=== PATIENT | female | born 1980 | race Caucasian/White ===

== ENCOUNTER 2016-09-08 09:42 | Emergency (ER) | payer SELFPAY ==
[~2016-09-08 09:42] MED LIST: Ketorolac Tromethamine 60 MG/2 ML VIAL ONE; Lidocaine 1% 20 ML MDV ONE; cefTRIAXone\\ROCEPHIN 1 GM VIAL ONE
[2016-09-08 10:37] LABS: Bilirubin Negative (Negative); Blood, Urine Negative (Negative); Clarity Slightly Cloudy (Clear); Glucose, Urine (Dipstick) Negative (Negative); Leukocyte Small (Negative); Nitrite Negative (Negative); Protein, Urine (Dipstick) Negative (Neg-Trace); Urobilinogen 0.2 mg/dL (0.2-1.0)
[2016-09-08 10:43] LABS: Bacteria/HPF 3+ HPF (None Seen); RBC/HPF 0-3 HPF (0-3); WBC/HPF 21-50 HPF (0-3)
[2016-09-08 10:44] LABS: Pregnancy Test - Urine (BHCG) NEGATIVE (NEGATIVE); Pregu Control Background? CLEAR/WHITE (CLR/WHITE); Pregu Control Bar Appear? YES (CONTROL BAR)
[2016-09-08 11:02] LABS: #Basophils 0.1 thou/uL (0.0-0.2); #Eosinphils 0.1 thou/uL (0.0-0.7); #Monocytes 0.6 thou/uL (0.11-0.59); #Neutrophils 4.2 thou/uL (1.40-6.50); %Basophils 0.8 % (0.0-1.0); %Eosinophils 1.4 % (0.0-10.0); %Lymphocytes 37.2 % (21.0-51.0); %Monocytes 7.8 % (0.0-10.0); %Neutrophils 52.9 % (42.0-75.0); Hemoglobin 13.9 g/dL (12.0-16.0); Mean Corpuscular HGB CONC 32.5 g/dL (32.0-36.0); Mean Corpuscular Hemoglobin 30.3 pg (27.0-31.0); Mean Corpuscular Volume 93.2 fl (81.0-99.0); Mean Platelet Volume 8.3 fL (7.4-10.4); Platelet Count 318 thou/uL (130-400); RBC Distribution Width 14.3 % (11.5-14.5); Red Blood Cell (RBC) Count 4.57 mill/uL (4.20-5.40); White Blood Cell (WBC) Count 7.9 thou/uL (4.8-10.8)
[2016-09-08 11:18] LABS: ALT (SGPT) 18 U/L (0-55); AST (SGOT) 14 U/L (5-34); Albumin 4.5 g/dL (3.5-5.0); Alkaline Phosphatase 92 U/L (40-150); Anion Gap 16 mmol/L (10-20); BUN (Urea Nitrogen) 6 mg/dL (7.0-18.7); Bilirubin, Total 0.5 mg/dL (0.2-1.2); Calc. Creatinine Clearance 0 mL/min (70-130); Calcium 9.6 mg/dL (7.8-10.44); Carbon Dioxide 26 mmol/L (22-29); Chloride 104 mmol/L (98-107); Estimated GFR-MDRD Greater than 90; Globulin 2.6 g/dL (2.4-3.5); Glucose 97 mg/dL (70-105); Potassium 4.2 mmol/L (3.5-5.1); Protein, Total 7.1 g/dL (6.0-8.3); Sodium 142 mmol/L (136-145)
[2016-09-08] MEDS ORDERED: Azithromycin 250 MG TAB ONE (11:19)
--- NOTE | 2016-09-08 11:20 | ERRECORD ---
[facility] EMERGENCY RECORD HPI ABDOMINAL PAIN (10:25 SHAN) CHIEF COMPLAINTS: Patient presents for evaluation of suprapubic pain and discharge. HISTORIAN: History provided by patient. QUALITY: Pain is dull in nature. TIME COURSE: Gradual onset of symptoms. RELIEVED BY: Patient's condition relieved by nothing. EXACERBATED BY: Patient's condition exacerbated by nothing. ROS CONSTITUTIONAL: Negative constitutional review of systems, Historian denies chills, denies fever. (10:25 SHAN) EYES: Negative eye review of systems. (10:25 SHAN) ENT: Negative ears, nose, throat review of systems. (10:25 SHAN) CARDIOVASCULAR: Negative cardiovascular review of systems, Historian denies chest pain, denies palpitations. (10:25 SHAN) RESPIRATORY: Negative respiratory review of systems, Historian denies cough, denies shortness of breath. (10:25 SHAN) GI: Negative gastrointestinal review of systems, Historian denies abdominal pain, denies constipation, denies diarrhea. (10:25 SHAN) GENITOURINARY FEMALE: c/o suprapubic pain and vaginal discharge. (10:26 SHAN) MUSCULOSKELETAL: Negative musculoskeletal review of systems. (10:25 SHAN) SKIN: Negative skin review of systems. (10:25 SHAN) NEUROLOGIC: Negative neurologic review of systems. (10:25 SHAN) ENDOCRINE: Negative endocrine review of systems. (10:25 SHAN) HEMO/LYMPHATIC: Normal hematologic/lymphatic system review. (10:25 SHAN) PSYCHIATRIC: Negative psychiatric review of systems. (10:25 SHAN) NOTES: All other ROS is negative except as listed in HPI. (10:25 SHAN) PAST MEDICAL HISTORY MEDICAL HISTORY: No past medical history, Flu vaccine not up to date, Tetanus not up to date, Pneumococcal vaccine not up to date. (10:19 SFRE) FEMALE SURGICAL HISTORY: THYROID CYST REMOVED- BENIGN, TUBAL LIGATION. (10:19 SFRE) PSYCHIATRIC HISTORY: Psychiatric history includes, anxiety. (10:19 SFRE) SOCIAL HISTORY: Patient drinks socially, once a month, Patient denies drug use, Patient currently uses tobacco, smokes cigarettes, daily, Patient smokes 1 pack per day. (10:19 SFRE) NOTES: I have reviewed and agree with the PMH/PSxH/FamHx/SocHx obtained by the nurse. (10:25 SHAN) KNOWN ALLERGIES NKDA &a-1R&a+25V*p+0X*e4327Y*c202B*c15G*c2P*p-0X&a-25V&a+1R Name: Niyah Oconnor : 1980 F36 MedRec: [id number] AcctNum: [id number] Prepared: ThuSep 10, 2016 07:08 by Interface Page 1 of 3 pMD [facility] EMERGENCY RECORD CURRENT MEDICATIONS (10:18 SFRE) None VITAL SIGNS (10:16 SFRE) VITAL SIGNS: BP: 106/67, Pulse: 81, Resp: 18, Temp: 98.0 (Tympanic), O2 sat: 100 on Room Air, Time: 09/08/2016 10:16. PHYSICAL EXAM CONSTITUTIONAL: Vital signs reviewed, Patient appears non toxic, Patient alert and oriented to person, place and time, Pt is in no apparent distress. (10:25 SHAN) HEAD: Head exam included findings of head atraumatic, normocephalic. (10:25 SHAN) EYES: Eye exam included findings of eyelids normal to inspection, Pupils equally round and reactive to light, Extraocular muscles intact. (10:25 SHAN) ENT: ENT exam normal, Nose exam normal, no nasal deformity, no bleeding from nares, Pharynx exam normal, Mouth exam normal, mucous membranes moist. (10:25 SHAN) NECK: Neck exam included findings of normal range of motion, Trachea midline. (10:25 SHAN) RESPIRATORY CHEST: Respiratory and chest exam normal, Breath sounds clear, No wheezing, No rales, Chest exam included findings of chest movement symmetrical, Chest expansion equal. (10:25 SHAN) CARDIOVASCULAR: Cardiovascular assessment normal, Cardiovascular exam included findings of heart rate regular rate and rhythm, Heart sounds normal. (10:25 SHAN) ABDOMEN FEMALE: Abdominal exam included findings of abdomen nontender, Bowel sounds normal, no mass, no pulsatile masses, no peritoneal signs. (10:25 SHAN) GENITOURINARY FEMALE: pelvic pain, tenderness on cervical motion, mild yellow discharge. (10:44 SHAN) BACK: Back exam included findings of normal inspection, range of motion normal, no costovertebral angle tenderness. (10:25 SHAN) UPPER EXTREMITY: Upper extremity exam included findings of inspection normal, Range of motion normal. (10:25 SHAN) LOWER EXTREMITY: Lower extremity exam included findings of inspection normal, Range of motion normal. (10:25 SHAN) NEURO: Neuro exam findings include patient oriented to person, place and time, Speech normal, no focal motor deficits, no focal sensory deficits. (10:25 SHAN) SKIN: Skin exam included findings of skin warm, dry, and normal in color. (10:25 SHAN) LYMPHATIC: Lymphatic exam normal. (10:25 SHAN) PSYCHIATRIC: Psychiatric exam included findings of patient oriented to person place and time, Normal affect. (10:25 SHAN) MEDICATION ADMINISTRATION SUMMARY Drug Name: Zithromax oral, Dose Ordered: 4 tab(s), Route: Oral, &a-1R&a+25V*p+0X*[id number]*c202B*c15G*c2P*p-0X&a-25V&a+1R Name: Niyah Oconnor : 1980 F36 MedRec: [id number] AcctNum: [id number] Prepared: ThuSep 10, 2016 07:08 by Interface Page 2 of 3 pMD [facility] EMERGENCY RECORD Status: Given, Time: 11:24 09/08/2016, Drug Name: Toradol intramuscular, Dose Ordered: 60 mg, Route: Intramuscular, Status: Given, Time: 10:54 09/08/2016, Drug Name: Rocephin IM Convenience, Dose Ordered: 1 g, Route: Intramuscular, Status: Given, Time: 10:54 09/08/2016, Detailed record available in Medication Service section. DOCTOR NOTES (11:06 SHAN) TEXT: Has had recurrent vaginitis dx per patient. Did have tender uterus/cervix on exam. Tests sent off. Will rx to cover each choice. Followup recommended. DATA REVIEWED: Lab data reviewed. PROBLEM LIST No recorded problems DIAGNOSIS (11:11 SHAN) FINAL: PRIMARY: INFLAMMATORY DISEASE CERVIX UTERI, ADDITIONAL: vaginosis. PRESCRIPTION Flagyl: TABLET : 500 mg : ORAL : Quantity: 1 Unit: tab(s) Route: ORAL Schedule: 2 times a day (with meals) Dispense: 14 Unit: tab(s) May substitute. Refills: No Refills . (11:08 SHAN) NOTES: No Refills. (11: JOHNY) Vibramycin capsule: CAPSULE : 100 mg : ORAL : Quantity: 1 Unit: cap(s) Route: ORAL Schedule: 2 times a day (with meals) Dispense: 14 Unit: cap(s) May substitute. Refills: No Refills . (: JOHNY) NOTES: No Refills. (: JOHNY) DISPOSITION PATIENT: Disposition Type: Discharge, Disposition: *Discharge Home. (11: JOHNY) Patient left the department. (11:36 GERALD) Moore: GERALD=ATUL Dela Cruz, Anne Marie YAN=ATUL Ch, Kari MCCLAIN=MD Hector, Kelvin &a-1R&a+25V*p+0X*e1873Q*c202B*c15G*c2P*p-0X&a-25V&a+1R Name: Niyah Oconnor : 1980 F36 MedRec: [id number] AcctNum: [id number] Prepared: ThuSep 10, 2016 07:08 by Interface Page 3 of 3 pMD MTDD
--- NOTE | 2016-09-08 11:24 | PICIS ---
[facility] EMERGENCY RECORD TRIAGE (ThuSep 08, 2016 10:18 SFRE) TRIAGE NOTES: SUPRAPUBIC CRAMPING WITH DISCHARGE. (ThuSep 08, 2016 10:18 SFRE) PATIENT: NAME: Niyah Oconnor, AGE: 36, GENDER: female, : Thu1980, TIME OF GREET: ThuSep 08, 2016 09:43, PREFERRED LANGUAGE: Urdu, ETHNICITY: Not or , ECODE BILLING MAP: [facility], SSN: [id number], Zip Code: [address], KG WEIGHT: 74.84, PHONE: , , , PERSON ID: [id number], PCP: NO PCP. (ThuSep 08, 2016 10:18 SFRE) COMPLAINT: ABDOMINAL PAIN,DISCHARGE. (ThuSep 08, 2016 10:18 SFRE) ADMISSION: URGENCY: 3 Urgent, ADMISSION SOURCE: Home, TRANSPORT: Walk-in, BED: ED -04. (ThuSep 08, 2016 10:18 SFRE) ASSESSMENT: Symptoms began 09/05/2016. (10:19 SFRE) PAIN: Patient complains of pain described as, cramping, on a scale 0-10 patient rates pain as 8, Location SUPRAPUBIC, Pain is constant, No aggravating factors, No relieving factors. (10:19 SFRE) IMMUNIZATIONS: Flu vaccine not up to date. (10:19 SFRE) SIRS SCORING: Heart Rate 55-109 (0), Temp range 96.8-101.1 (0), respiratory rate 12-24 (0), Mental Status altered: no (0). (10:19 SFRE) TRIAGE SCREENING: Patient denies suicidal ideation, Patient denies presence of domestic violence. (10:19 SFRE) PROVIDERS: TRIAGE NURSE: Kari hC RN. (ThuSep 08, 2016 10:18 SFRE) VITAL SIGNS: BP 106/67, Pulse 81, Resp 18, Temp 98.0, (Tympanic), O2 Sat 100, on Room Air, Time 09/08/2016 10:16. (10:16 SFRE) PREVIOUS VISIT ALLERGIES: NKDA. (ThuSep 08, 2016 10:18 SFRE) NKDA. (10:19 SFRE) KNOWN ALLERGIES NKDA CURRENT MEDICATIONS (10:18 SFRE) None VITAL SIGNS (10:16 SFRE) VITAL SIGNS: BP: 106/67, Pulse: 81, Resp: 18, Temp: 98.0 (Tympanic), O2 sat: 100 on Room Air, Time: 09/08/2016 10:16. NURSING ASSESSMENT: GENITOURINARY (10:18 SFRE) CONSTITUTIONAL: Patient arrives ambulatory, Gait steady, History obtained from patient, Patient appears, in distress due to pain, Patient cooperative, Patient alert, Oriented to person, place and time, Skin warm, Skin dry, Skin normal in color, Mucous membranes pink, Mucous membranes moist, Patient is well-groomed, Patient complains of ABD PAIN. PAIN FEMALE: Pain exacerbated by nothing, Nothing has been &a-1R&a+25V*p+0X*k9500O*c202B*c15G*c2P*p-0X&a-25V&a+1R Name: Niyah Oconnor : 1980 F36 MedRec: [id number] AcctNum: [id number] Prepared: ThuSep 10, 2016 07:14 by Interface Page 1 of 9 pMD [facility] EMERGENCY RECORD tried to alleviate the pain, cramping pain, to the suprapubic region, constant, on a scale 0-10 patient rates pain as 8. GENITOURINARY FEMALE: no associated urinary complaints, Associated with vaginal discharge, moderate amount, of thick, white discharge, with a foul odor, REPORTS THE CONSISTANCY CHANGES FROM THICK TO THIN, no associated vaginal bleeding, no associated complaints of painful intercourse, Notes: REPORTS HX OF BACTERIAL VAGINOSIS. ABDOMEN: Abdomen assessment findings include abdomen symmetrical, Abdomen soft, tender, suprapubic, Bowel sound normal, no associated nausea, no associated vomiting, no associated diarrhea, no associated constipation. SAFETY: Side rails up, Cart/Stretcher in lowest position, Family at bedside, Call light within reach, Hospital ID band on. NURSING PROCEDURE: DISCHARGE NOTE (11:16 SCHI) DISCHARGE: Patient discharged to home, ambulating without assistance, family driving, accompanied by other family member, Summary of Care printed/ provided, Patient requested and was provided an electronic copy of Discharge Instructions, Transition record given to patient, Discharge instructions given to patient, Simple or moderate discharge teaching performed, Prescriptions given and instructions on side effects given, Medication reconciliation form given, Above person(s) verbalized understanding of discharge instructions and follow-up care, Patient treated and evaluated by physician. BELONGINGS: Belongings and valuables with patient at time of discharge include:, Belongings remain with patient, Valuables remain with patient. SAFETY: Side rails up, Cart/Stretcher in lowest position, Family at bedside, Hospital ID band on. NURSING PROCEDURE: PELVIC EXAM (10:18 SFRE) PELVIC EXAM: Pelvic exam indicated for vaginal discharge, Pelvic exam performed by Dr. YOUNG, Pelvic exam assisted by JEZRN, Exam findings include, small amount, of yellow vaginal discharge, with odor, GC/Chlamydia cultures obtained, labeled in the presence of the patient and sent to lab, Specimen for wet prep collected, labeled in the presence of the patient and sent to lab, Notes: MANUAL EXAM ONLY NO SPECULUM USED. SAFETY: Side rails up, Cart/Stretcher in lowest position, Family at bedside, Call light within reach, Hospital ID band on. ORDER DETAILS Order Name: CBC with Differential, Status: Active, Time: 10:22 09/08/2016, User: JOHNY, - Ordered for: MD Young Stanley, &a-1R&a+25V*p+0X*n9420Y*c202B*c15G*c2P*p-0X&a-25V&a+1R Name: Niyah Oconnor : 1980 F36 MedRec: [id number] AcctNum: [id number] Prepared: ThuSep 10, 2016 07:14 by Interface Page 2 of 9 pMD [facility] EMERGENCY RECORD - Entered by: MD Yonug Stanley - Mon Sep 08, 2016 10:22, - Quantity: 1, Order Name: Comprehensive Metabolic Panel, Status: Active, Time: 10:25 09/08/2016, User: JOHNY, - Ordered for: MD Young Stanley, - Entered by: MD Young Stanley - Mon Sep 08, 2016 10:25, - Quantity: 1, Order Name: Culture, Urine, Status: Active, Time: 10:24 09/08/2016, User: JOHNY, - Ordered for: MD Young Stanley, - Entered by: MD Young Stanley - [facility] Sep 08, 2016 10:24, - Quantity: 1, Order Name: GC/Chlamydia Profile by PCR, Status: Active, Time: 10:24 09/08/2016, User: JOHNY, - Ordered for: MD Young Stanley, - Entered by: MD Young Stanley - Mon Sep 08, 2016 10:24, - Quantity: 1, Order Name: Test, Urine (CG), Status: Active, Time: 10:23 09/08/2016, User: YURIY, - Ordered for: MD Young Stanley, - Entered by: ATUL Ch, [facility] Sep 08, 2016 10:23, - Quantity: 1, Order Name: Urinalysis with Microscopic, Status: Active, Time: 10:22 09/08/2016, User: YURIY, - Ordered for: MD Young Stanley, - Entered by: ATUL Ch, [facility] Sep 08, 2016 10:22, - Quantity: 1, Order Name: Urinalysis with Microscopic, Status: Active, Time: 10:24 09/08/2016, User: JOHNY, - Ordered for: MD Young Stanley, - Entered by: MD Young Stanley [facility] Sep 08, 2016 10:24, - Quantity: 1, Order Name: Wet Prep, Status: Canceled, Time: 14:06 09/08/2016, User: System, - Ordered for: MD Young Stanley, - Entered by: ATUL Ch, [facility] Sep 08, 2016 10:39, - Quantity: 1. MEDICATION ADMINISTRATION SUMMARY Drug Name: Zithromax oral, Dose Ordered: 4 tab(s), Route: Oral, Status: Given, Time: 11:24 09/08/2016, Drug Name: Toradol intramuscular, Dose Ordered: 60 mg, Route: Intramuscular, Status: Given, Time: 10:54 09/08/2016, Drug Name: Rocephin IM Convenience, Dose Ordered: 1 g, Route: Intramuscular, Status: Given, Time: 10:54 09/08/2016, Detailed record available in Medication Service section. MEDICATION SERVICE Rocephin IM Convenience: Order: Rocephin IM Convenience &a-1R&a+25V*p+0X*o3234N*c202B*c15G*c2P*p-0X&a-25V&a+1R Name: Niyah Oconnor : 1980 F36 MedRec: [id number] AcctNum: [id number] Prepared: ThuSep 10, 2016 07:14 by Interface Page 3 of 9 pMD [facility] EMERGENCY RECORD (ceftriaxone sodium/lidocaine HCl) - Dose: 1 g : Intramuscular Schedule: Now Ordered by: Kelvin Young MD Entered by: Kelvin Young MD ThuSep 08, 2016 10:46 Documented as given by: Kari Ch RN ThuSep 08, 2016 10:54 Patient, Medication, Dose, Route and Time verified prior to administration. IM antibiotic, Amount given: 1G, Medication administered to right hip, Medication combined for administration with 1% LIDOCAINE, Patient appears Awake and alert- acceptable, Correct patient, time, route, dose and medication confirmed prior to administration, Patient advised of actions and side-effects prior to administration, Allergies confirmed and medications reviewed prior to administration, Patient in position of comfort, Side rails up, Cart in lowest position, Family at bedside. Toradol intramuscular: Order: Toradol intramuscular (ketorolac tromethamine) - Dose: 60 mg : Intramuscular Schedule: Now Ordered by: Kelvin Young MD Entered by: Kelvin Young MD ThuSep 08, 2016 10:45 Documented as given by: Kari Ch RN ThuSep 08, 2016 10:54 Patient, Medication, Dose, Route and Time verified prior to administration. IM medication, Amount given: 60MG, Medication administered to left hip, Patient appears Awake and alert- acceptable, Correct patient, time, route, dose and medication confirmed prior to administration, Patient advised of actions and side-effects prior to administration, Allergies confirmed and medications reviewed prior to administration, Patient in position of comfort, Side rails up, Cart in lowest position, Family at bedside. Zithromax oral: Order: Zithromax oral (azithromycin) - Dose: 4 tab(s) : Oral Schedule: Now Ordered by: Kelvin Young MD Entered by: Kelvin Young MD ThuSep 08, 2016 11:06 , Acknowledged by: Kari Ch RN ThuSep 08, 2016 11:17 Documented as given by: Kari Ch RN ThuSep 08, 2016 11:24 Patient, Medication, Dose, Route and Time verified prior to administration. Amount given: 1 GM, Site: Medication administered P.O., Correct patient, time, route, dose and medication confirmed prior to administration, Patient advised of actions and side-effects prior to administration, Allergies confirmed and medications reviewed prior to administration. HPI ABDOMINAL PAIN (10:25 SHAN) CHIEF COMPLAINTS: Patient presents for evaluation of suprapubic pain and discharge. HISTORIAN: History provided by patient. QUALITY: Pain is dull in &a-1R&a+25V*p+0X*q5342M*c202B*c15G*c2P*p-0X&a-25V&a+1R Name: Niyah Oconnor : 1980 F36 MedRec: [id number] AcctNum: [id number] Prepared: ThuSep 10, 2016 07:14 by Interface Page 4 of 9 pMD [facility] EMERGENCY RECORD nature. TIME COURSE: Gradual onset of symptoms. RELIEVED BY: Patient's condition relieved by nothing. EXACERBATED BY: Patient's condition exacerbated by nothing. ROS CONSTITUTIONAL: Negative constitutional review of systems, Historian denies chills, denies fever. (10:25 SHAN) EYES: Negative eye review of systems. (10:25 SHAN) ENT: Negative ears, nose, throat review of systems. (10:25 SHAN) CARDIOVASCULAR: Negative cardiovascular review of systems, Historian denies chest pain, denies palpitations. (10:25 SHAN) RESPIRATORY: Negative respiratory review of systems, Historian denies cough, denies shortness of breath. (10:25 SHAN) GI: Negative gastrointestinal review of systems, Historian denies abdominal pain, denies constipation, denies diarrhea. (10:25 SHAN) GENITOURINARY FEMALE: c/o suprapubic pain and vaginal discharge. (10:26 SHAN) MUSCULOSKELETAL: Negative musculoskeletal review of systems. (10:25 SHAN) SKIN: Negative skin review of systems. (10:25 SHAN) NEUROLOGIC: Negative neurologic review of systems. (10:25 SHAN) ENDOCRINE: Negative endocrine review of systems. (10:25 SHAN) HEMO/LYMPHATIC: Normal hematologic/lymphatic system review. (10:25 SHAN) PSYCHIATRIC: Negative psychiatric review of systems. (10:25 SHAN) NOTES: All other ROS is negative except as listed in HPI. (10:25 SHAN) PAST MEDICAL HISTORY MEDICAL HISTORY: No past medical history, Flu vaccine not up to date, Tetanus not up to date, Pneumococcal vaccine not up to date. (10:19 SFRE) FEMALE SURGICAL HISTORY: THYROID CYST REMOVED- BENIGN, TUBAL LIGATION. (10:19 SFRE) PSYCHIATRIC HISTORY: Psychiatric history includes, anxiety. (10:19 SFRE) SOCIAL HISTORY: Patient drinks socially, once a month, Patient denies drug use, Patient currently uses tobacco, smokes cigarettes, daily, Patient smokes 1 pack per day. (10:19 SFRE) NOTES: I have reviewed and agree with the PMH/PSxH/FamHx/SocHx obtained by the nurse. (10:25 SHAN) PHYSICAL EXAM CONSTITUTIONAL: Vital signs reviewed, Patient appears non toxic, Patient alert and oriented to person, place and time, Pt is in no apparent distress. (10:25 SHAN) HEAD: Head exam included findings of head atraumatic, normocephalic. (10:25 SHAN) EYES: Eye exam included findings of eyelids normal to inspection, &a-1R&a+25V*p+0X*f7104O*c202B*c15G*c2P*p-0X&a-25V&a+1R Name: Niyah Oconnor : 1980 F36 MedRec: [id number] AcctNum: [id number] Prepared: ThuSep 10, 2016 07:14 by Interface Page 5 of 9 pMD [facility] EMERGENCY RECORD Pupils equally round and reactive to light, Extraocular muscles intact. (10:25 SHAN) ENT: ENT exam normal, Nose exam normal, no nasal deformity, no bleeding from nares, Pharynx exam normal, Mouth exam normal, mucous membranes moist. (10:25 SHAN) NECK: Neck exam included findings of normal range of motion, Trachea midline. (10:25 SHAN) RESPIRATORY CHEST: Respiratory and chest exam normal, Breath sounds clear, No wheezing, No rales, Chest exam included findings of chest movement symmetrical, Chest expansion equal. (10:25 SHAN) CARDIOVASCULAR: Cardiovascular assessment normal, Cardiovascular exam included findings of heart rate regular rate and rhythm, Heart sounds normal. (10:25 SHAN) ABDOMEN FEMALE: Abdominal exam included findings of abdomen nontender, Bowel sounds normal, no mass, no pulsatile masses, no peritoneal signs. (10:25 SHAN) GENITOURINARY FEMALE: pelvic pain, tenderness on cervical motion, mild yellow discharge. (10:44 SHAN) BACK: Back exam included findings of normal inspection, range of motion normal, no costovertebral angle tenderness. (10:25 SHAN) UPPER EXTREMITY: Upper extremity exam included findings of inspection normal, Range of motion normal. (10:25 SHAN) LOWER EXTREMITY: Lower extremity exam included findings of inspection normal, Range of motion normal. (10:25 SHAN) NEURO: Neuro exam findings include patient oriented to person, place and time, Speech normal, no focal motor deficits, no focal sensory deficits. (10:25 SHAN) SKIN: Skin exam included findings of skin warm, dry, and normal in color. (10:25 SHAN) LYMPHATIC: Lymphatic exam normal. (10:25 SHAN) PSYCHIATRIC: Psychiatric exam included findings of patient oriented to person place and time, Normal affect. (10:25 SHAN) EVENTS TRANSFER: Triage to Emergency Main ED -04. (ThuSep 08, 2016 10:18 SFRE) Emergency Main ED -04 to Waiting. (11:24 SFRE) Removed from Emergency Waiting. (11:36 SCHI) DOCTOR NOTES (11:06 SHAN) TEXT: Has had recurrent vaginitis dx per patient. Did have tender uterus/cervix on exam. Tests sent off. Will rx to cover each choice. Followup recommended. DATA REVIEWED: Lab data reviewed. PROBLEM LIST No recorded problems DIAGNOSIS (11:11 SHAN) FINAL: PRIMARY: INFLAMMATORY DISEASE CERVIX UTERI, &a-1R&a+25V*p+0X*h6034E*c202B*c15G*c2P*p-0X&a-25V&a+1R Name: Niyah Oconnor : 1980 F36 MedRec: [id number] AcctNum: [id number] Prepared: ThuSep 10, 2016 07:14 by Interface Page 6 of 9 pMD [facility] EMERGENCY RECORD ADDITIONAL: vaginosis. DISPOSITION PATIENT: Disposition Type: Discharge, Disposition: *Discharge Home. (11:11 SHAN) Patient left the department. (11:36 [facility]) INSTRUCTION (11: [facility]) DISCHARGE: CERVICITIS (STD), TREATED, BACTERIAL VAGINOSIS. SPECIAL: 1. The current course should cover each likely problem with the recurrent hx given 2. No alcohol 3. Followup with a regular provider and have final tests checked as available 4. Return if condition worsens. PRESCRIPTION Flagyl: TABLET : 500 mg : ORAL : Quantity: 1 Unit: tab(s) Route: ORAL Schedule: 2 times a day (with meals) Dispense: 14 Unit: tab(s) May substitute. Refills: No Refills . ( [facility]) NOTES: No Refills. ( [facility]) Vibramycin capsule: CAPSULE : 100 mg : ORAL : Quantity: 1 Unit: cap(s) Route: ORAL Schedule: 2 times a day (with meals) Dispense: 14 Unit: cap(s) May substitute. Refills: No Refills . (: [facility]) NOTES: No Refills. (: [facility]) IMAGING (11:34 [facility]) *DISCHARGE INSTRUCTIONS RECEIPT: Image captured from scanner. *SUPPLY CHARGE SHEET: Image captured from scanner. ADMIN DIGITAL SIGNATURE: MD Hector, Kelvin. (: [facility]) ATUL Dela Cruz, Anne Marie. (13:24 [facility]) ATUL Ch, Kari. (ThuSep 09, 2016 10:00 [facility]) MD Young Stanley. (ThuSep 10, 2016 07:05 [facility]) RESULTS LABORATORY: Test, Urine (BHCG) Collection DT: ThuSep 08, 2016 10:36, Test - Urine (BHCG) NEGATIVE , Range (NEGATIVE), Method of sensitivity- Indeterminant: results should be repeated, after 48 hours. Positive: results may be detected as early as 4-5 days before a first missed menses. Elimination of BHCG-, &a-1R&a+25V*p+0X*e5309B*c202B*c15G*c2P*p-0X&a-25V&a+1R Name: Carleen Menard Niyah : 1980 6 MedRec: [id number] AcctNum: [id number] Prepared: ThuSep 10, 2016 07:14 by Interface Page 7 of 9 pMD [facility] EMERGENCY RECORD Elimination following first trimester D&C: 29-44 Days , Elimination following term : 8-24 Days , Specific [place] 1.020 , Range (1.002-1.036), A dilute urine specimen may, not contain commercial sales representative levels of hCG. If is still, suspected, a first morning urine specimen OR a random blood specimen should, be obtained from the patient 48-72 hours later and re-tested. , . (10:50 SHAN) Urinalysis with Microscopic Collection DT: ThuSep 08, 2016 10:33, Color Yellow , Range (Yellow), Clarity Slightly Cloudy , Range (Clear), Specific [place], Urine 1.020 , Range (1.005-1.030), pH, Urine 6.0 , Range (5.0-9.0), *Leukocyte Small - H , Range (Negative), Nitrite Negative , Range (Negative), Protein, Urine (Dipstick) Negative mg/dL, Range (Neg-Trace), Glucose, Urine (Dipstick) Negative mg/dL, Range (Negative), Ketone, Urine Negative mg/dL, Range (Negative), Urobilinogen 0.2 mg/dL, Range (0.2-1.0), Bilirubin Negative , Range (Negative), Blood, Urine Negative , Range (Negative), RBC/HPF 0-3 HPF, Range (0-3), *WBC/HPF 21-50 - H HPF, Range (0-3), *Squamous Epithelial 11-20 - H HPF, Range (0-3), *Bacteria/HPF 3+ - H HPF, Range (None Seen). (10:50 SHAN) CBC with Differential Collection DT: ThuSep 08, 2016 11:00, White Blood Cell (WBC) Count 7.9 thou/uL, Range (4.8-10.8), Red Blood Cell (RBC) Count 4.57 mill/uL, Range (4.20-5.40), Hemoglobin 13.9 g/dL, Range (12.0-16.0), Hematocrit 42.6 %, Range (36.0-47.0), Mean Corpuscular Volume 93.2 fl, Range (81.0-99.0), Mean Corpuscular Hemoglobin 30.3 pg, Range (27.0-31.0), Mean Corpuscular HGB CONC 32.5 g/dL, Range (32.0-36.0), RBC Distribution Width 14.3 %, Range (11.5-14.5), Platelet Count 318 thou/uL, Range (130-400), Mean Platelet Volume 8.3 fL, Range (7.4-10.4), %Neutrophils 52.9 %, Range (42.0-75.0), %Lymphocytes 37.2 %, Range (21.0-51.0), %Monocytes 7.8 %, Range (0.0-10.0), %Eosinophils 1.4 %, Range (0.0-10.0), %Basophils 0.8 %, Range (0.0-1.0), #Neutrophils 4.2 thou/uL, Range (1.40-6.50), #Lymphocytes 3.0 thou/uL, Range (1.20-3.40), *#Monocytes 0.6 - H thou/uL, Range (0.11-0.59), #Eosinphils 0.1 thou/uL, Range (0.0-0.7), #Basophils 0.1 thou/uL, Range (0.0-0.2). (11:06 [facility]) Comprehensive Metabolic Panel Collection DT: ThuSep 08, 2016 11:00, &a-1R&a+25V*p+0X*l7621J*c202B*c15G*c2P*p-0X&a-25V&a+1R Name: Niyah Oconnor : 1980 F36 MedRec: [id number] AcctNum: [id number] Prepared: ThuSep 10, 2016 07:14 by Interface Page 8 of 9 pMD [facility] EMERGENCY RECORD Sodium 142 mmol/L, Range (136-145), Potassium 4.2 mmol/L, Range (3.5-5.1), Chloride 104 mmol/L, Range (98-107), Carbon Dioxide 26 mmol/L, Range (22-29), Anion Gap 16 mmol/L, Range (10-20), *BUN (Urea Nitrogen) 6 - L mg/dL, Range (7.0-18.7), Creatinine 0.68 mg/dL, Range (0.6-1.1), Estimated GFR-MDRD Greater than 90 , Reference Range for Estimated GFR: Greater than 90, mL/min/1.73 m2 NOTE: The MDRD equation has not been validated for use, with the elderly (over 70 years of age), women, patients with, serious comorbid condition or persons with extremes of body size, muscle, mass, or nutritional status. , Glucose 97 mg/dL, Range (70-105), Calcium 9.6 mg/dL, Range (7.8-10.44), Bilirubin, Total 0.5 mg/dL, Range (0.2-1.2), Protein, Total 7.1 g/dL, Range (6.0-8.3), NOTE: Plasma values are generally 0.3 to 0.5 g/dL higher than serum values, due to the presence of fibrinogen. , Albumin 4.5 g/dL, Range (3.5-5.0), Globulin 2.6 g/dL, Range (2.4-3.5), Alb/Glob Ratio 1.7 g/dL, Range (1.2-2.2), Alkaline Phosphatase 92 U/L, Range (40-150), AST (SGOT) 14 U/L, Range (5-34), ALT (SGPT) 18 U/L, Range (0-55). (11:24 JOHNY) Moore: GERALD=ATUL Dela Cruz, Anne Marie YAN=ATUL Ch, Kari MCCLAIN=MD Hector, Kelvin &a-1R&a+25V*p+0X*a6570U*c202B*c15G*c2P*p-0X&a-25V&a+1R Name: Niyah Oconnor : 1980 F36 MedRec: [id number] AcctNum: [id number] Prepared: Vijay Sep 10, 2016 07:14 by Interface Page 9 of 9 pMD MTDD
[2016-09-10 05:12] LABS: Chlamydia by PCR Not Detected (NotDetected); GC by PCR Not Detected (NotDetected)
== END 2016-09-08 11:16 | disposition home or self-care (01) ==
LOC: MADERS 09:42
DX: N72 Inflammatory disease of cervix uteri (principal); N76.0 Acute vaginitis; F41.9 Anxiety disorder, unspecified; F17.210 Nicotine dependence, cigarettes, uncomplicated
CPT/HCPCS: 36415; 80053; 81001; 81025; 85025; 87086; 87491; 87591; 96372; J0696; J1885; J2001

== ENCOUNTER 2016-11-03 07:24 | Emergency (ER) | payer MEDICAID, SELFPAY ==
[2016-11-03] MEDS ORDERED: Ketorolac Tromethamine 30 MG/ML VIAL ONE (08:03)
== END 2016-11-03 08:56 | disposition home or self-care (01) ==
LOC: MADERS 07:24
DX: J06.9 Acute upper respiratory infection, unspecified (principal); F41.9 Anxiety disorder, unspecified; F17.210 Nicotine dependence, cigarettes, uncomplicated
CPT/HCPCS: 96372; J1885

== ENCOUNTER 2017-06-29 21:56 | Emergency (ER) | payer MEDICAID ==
[2017-06-29] MEDS ORDERED: Ketorolac Tromethamine 60 MG/2 ML VIAL ONE (22:24)
[2017-06-29] MEDS ORDERED: HYDROcodone/Acetaminophen 10/325 mg Tablet ONE (22:24)
[2017-06-29 22:42] LABS: Bilirubin Negative (Negative); Blood, Urine Negative (Negative); Clarity Clear (Clear); Glucose, Urine (Dipstick) Negative (Negative); Leukocyte Negative (Negative); Nitrite Negative (Negative); Protein, Urine (Dipstick) Negative (Neg-Trace); Urobilinogen 0.2 mg/dL (0.2-1.0); pH, Urine 6.5 (5.0-9.0)
[2017-06-29 22:43] LABS: Pregnancy Test - Urine (BHCG) Negative (Negative)
[2017-06-29 22:44] LABS: Pregu Control Background? CLEAR/WHITE (CLR/WHITE); Pregu Control Bar Appear? YES (CONTROL BAR)
[2017-06-29 22:46] LABS: Bacteria/HPF None Seen HPF (None Seen); RBC/HPF 0-3 HPF (0-3); WBC/HPF 0-3 HPF (0-3)
== END 2017-06-29 23:03 | disposition home or self-care (01) ==
LOC: MADERS 21:56
DX: R10.30 Lower abdominal pain, unspecified (principal); F41.9 Anxiety disorder, unspecified; F17.210 Nicotine dependence, cigarettes, uncomplicated
CPT/HCPCS: 81001; 81025; 96372; J1885

== ENCOUNTER 2019-09-06 21:17 | Emergency (ER) | payer MEDICAID ==
[2019-09-06] MEDS ORDERED: Oxymetazoline HCl 0.05% (30 ML BOT) ONE (21:49)
== END 2019-09-06 21:59 | disposition home or self-care (01) ==
LOC: MADERS 21:17
DX: J01.10 Acute frontal sinusitis, unspecified (principal); F17.210 Nicotine dependence, cigarettes, uncomplicated; F41.9 Anxiety disorder, unspecified
CPT/HCPCS: 99283

== ENCOUNTER 2020-08-19 02:51 | Emergency (ER) | payer MEDICAID, SELFPAY ==
[2020-08-19] MEDS ORDERED: Lidocaine 1% 20 ML MDV ONE (03:40)
[2020-08-19] MEDS ORDERED: Ibuprofen 800 MG TAB ONE (03:40)
[2020-08-19] MEDS ORDERED: Azithromycin 250 MG TAB ONE (03:40)
[2020-08-19] MEDS ORDERED: cefTRIAXone\\ROCEPHIN 250 MG VIAL ONE (03:40)
[2020-08-19] MEDS ORDERED: Acetaminophen 500 MG TAB ONE (03:40)
[2020-08-19 04:25] LABS: Wet Prep Clue Cells Clue Cells Absent (None Seen); Wet Prep Trichomonas Trichomonas Absent (None Seen)
[2020-08-19 14:59] LABS: Syphilis Antibody Nonreactive (Nonreactive); Syphilis Antibody Index 0.08 S/CO (<1.00 Non-Reactive)
[2020-08-19 15:10] LABS: HBCM Index 0.09 S/CO (0-0.79); HBSAg Index 0.23 S/CO (0-0.99); HIV (1/2) Antibody/Antigen Non-Reactive (NonReactive); HIV 1/2 INDEX 0.14 S/CO (<1.00); Hep A IgM AB Non-Reactive (NonReactive); Hep A IgM S/CO 0.14 S/CO (0-0.79); Hep B Surf Ag Non-Reactive S/CO (NonReactive); Hep C IgG Ab Non-Reactive (NonReactive); Hep C Index 0.16 S/CO (0-0.79); Hepatitis B Core IgM Abs Non-Reactive (NonReactive)
== END 2020-08-19 03:54 | disposition home or self-care (01) ==
LOC: MADERS 02:51
DX: N76.0 Acute vaginitis (principal); F17.210 Nicotine dependence, cigarettes, uncomplicated; Z87.42 Personal history of other diseases of the female genital tract
CPT/HCPCS: 80074; 86780; 87210; 87389; 87491; 87591; 96372; 99283; J0696

== ENCOUNTER 2022-02-13 18:39 | Emergency (ER) | payer SELFPAY ==
[2022-02-13 19:16] LABS: Bilirubin Negative (Negative); Blood, Urine Negative (Negative); Glucose, Urine (Dipstick) Negative (Negative); Ketone, Urine Negative (Negative); Leukocyte Small (Negative); Nitrite Positive (Negative); Protein, Urine (Dipstick) Negative (Neg-Trace); Specific Gravity, Urine 1.015 (1.005-1.030); pH, Urine 5.5 (5.0-9.0)
[2022-02-13] MEDS ORDERED: Sodium Chloride 0.9% 1,000 ML ONE (19:23)
[2022-02-13 19:26] LABS: Clarity Cloudy (Clear); Pregnancy Test - Urine (BHCG) Negative (Negative); Pregu Control Background? CLEAR/WHITE (CLR/WHITE); Pregu Control Bar Appear? YES (CONTROL BAR); Specific Gravity 1.015 (1.002-1.036)
[2022-02-13 19:35] LABS: RBC/HPF None Seen HPF (0-3); WBC/HPF 21-50 HPF (0-3)
[2022-02-13 19:36] LABS: Bacteria/HPF 3+ HPF (None Seen)
[2022-02-13 19:43] LABS: ALT (SGPT) 9 U/L (8-55); AST (SGOT) 11 U/L (5-34); Albumin 3.9 g/dL (3.5-5.0); Alkaline Phosphatase 72 U/L (40-110); Anion Gap 17 mmol/L (10-20); BUN (Urea Nitrogen) 13 mg/dL (7.0-18.7); Bilirubin, Total 0.5 mg/dL (0.2-1.2); CK (CPK) 25 U/L (29-168); Calc. Creatinine Clearance 0 mL/min (70-130); Calcium 8.8 mg/dL (7.8-10.44); Carbon Dioxide 20 mmol/L (22-29); Chloride 109 mmol/L (98-107); Globulin 2.8 g/dL (2.4-3.5); Glucose 89 mg/dL (70-105); Potassium 3.7 mmol/L (3.5-5.1); Protein, Total 6.7 g/dL (6.0-8.3); Sodium 142 mmol/L (136-145)
[2022-02-13] MEDS ORDERED: cefTRIAXone\\ROCEPHIN 1 GM VIAL ONE (19:53)
[2022-02-13] MEDS ORDERED: Sodium Chloride 0.9% 100 ML ONE (19:53)
[2022-02-13 19:55] LABS: #Basophils 0.1 thou/uL (0.0-0.2); #Eosinphils 0.1 thou/uL (0.0-0.7); #Lymphocytes 1.9 thou/uL (1.20-3.40); #Monocytes 0.5 thou/uL (0.11-0.59); #Neutrophils 2.3 thou/uL (1.40-6.50); %Basophils 1.1 % (0.0-1.0); %Eosinophils 1.7 % (0.0-10.0); %Lymphocytes 39.8 % (21.0-51.0); %Monocytes 9.9 % (0.0-10.0); %Neutrophils 47.5 % (42.0-75.0); Anisocytosis SLIGHT = 6-15 cells (100X) (0-5/hpf); Hemoglobin 5.3 g/dL (12.0-16.0); Hypochromia MODERATE=16-30 cells (100X) (0-5/hpf); MDiff Complete? YES; Mean Corpuscular Hemoglobin 15.6 pg (27.0-31.0); Mean Corpuscular Volume 57.8 fL (78.0-98.0); Mean Platelet Volume 9.7 fL (7.4-10.4); Microcytosis SLIGHT = 6-15 cells (100X) (0-5/hpf); Platelet Count 346 thou/uL (130-400); Platelet Morphology Comment Appears Adequate; RBC Distribution Width 17.9 % (11.5-14.5); Red Blood Cell (RBC) Count 3.39 mill/uL (4.20-5.40); Reflex for Review?? YES; Stomatocytes SLIGHT = 2-5 cells (100X) (0-1/hpf); White Blood Cell (WBC) Count 4.8 thou/uL (4.8-10.8)
[2022-02-13 20:37] LABS: INR-International Normal Ratio 1.1; PTT 32.4 sec (22.9-36.1); Prothrombin Time 13.9 sec (12.0-14.7)
== END 2022-02-13 21:54 | disposition short-term general hospital (02) ==
LOC: MADERS 18:39
DX: D64.9 Anemia, unspecified (principal); N30.00 Acute cystitis without hematuria; E86.0 Dehydration; N92.1 Excessive and frequent menstruation with irregular cycle; F17.210 Nicotine dependence, cigarettes, uncomplicated
CPT/HCPCS: 36430; 80053; 81003; 81015; 81025; 82550; 85025; 85060; 85610; 85730; 86850; 86900; 86901; 93005; 96361; 96365; J0696; J3490; J7050; P9016

== ENCOUNTER 2022-05-08 07:15 | Emergency (ER) | payer MEDICAID, SELFPAY ==
[2022-05-08] MEDS ORDERED: Ketorolac Tromethamine 30 MG/ML VIAL ONE (07:41)
[2022-05-08 08:07] LABS: Bilirubin Negative (Negative); Blood, Urine Trace (Negative); Clarity Slightly Cloudy (Clear); Glucose, Urine (Dipstick) Negative (Negative); Ketone, Urine Negative (Negative); Leukocyte Large (Negative); Nitrite Negative (Negative); Protein, Urine (Dipstick) Trace mg/dL (Neg-Trace); Specific Gravity, Urine 1.015 (1.005-1.030); Urobilinogen 0.2 mg/dL (Less than 2); pH, Urine 8.5 (5.0-9.0)
[2022-05-08 08:16] LABS: #Basophils 0.1 thou/uL (0.0-0.2); #Eosinphils 0.1 thou/uL (0.0-0.7); #Lymphocytes 1.9 thou/uL (1.20-3.40); #Monocytes 0.5 thou/uL (0.11-0.59); #Neutrophils 3.7 thou/uL (1.40-6.50); %Basophils 1.2 % (0.0-1.0); %Eosinophils 1.7 % (0.0-10.0); %Lymphocytes 29.7 % (21.0-51.0); %Monocytes 8.2 % (0.0-10.0); %Neutrophils 59.2 % (42.0-75.0); Hemoglobin 6.8 g/dL (12.0-16.0); Mean Corpuscular HGB CONC 28.7 g/dL (32.0-36.0); Mean Corpuscular Hemoglobin 20.3 pg (27.0-31.0); Mean Corpuscular Volume 70.9 fL (78.0-98.0); Mean Platelet Volume 9.4 fL (7.4-10.4); Platelet Count 418 thou/uL (130-400); RBC Distribution Width 17.4 % (11.5-14.5); Red Blood Cell (RBC) Count 3.36 mill/uL (4.20-5.40); White Blood Cell (WBC) Count 6.2 thou/uL (4.8-10.8)
[2022-05-08 08:24] LABS: Bacteria/HPF 3+ HPF (None Seen); RBC/HPF 0-3 HPF (0-3); Squamous Epithelial 0-3 HPF (0-3)
[2022-05-08 08:24] LABS: ALT (SGPT) 149 U/L (8-55); AST (SGOT) 337 U/L (5-34); Albumin 3.7 g/dL (3.5-5.0); Alkaline Phosphatase 169 U/L (40-110); Anion Gap 12 mmol/L (10-20); BUN (Urea Nitrogen) 10 mg/dL (7.0-18.7); Bilirubin, Total 0.9 mg/dL (0.2-1.2); Calc. Creatinine Clearance 0 mL/min (70-130); Calcium 8.7 mg/dL (7.8-10.44); Carbon Dioxide 25 mmol/L (22-29); Chloride 106 mmol/L (98-107); Estimated GFR 113; Globulin 2.9 g/dL (2.4-3.5); Glucose 91 mg/dL (70-105); Potassium 3.7 mmol/L (3.5-5.1); Protein, Total 6.6 g/dL (6.0-8.3); Sodium 139 mmol/L (136-145)
[2022-05-08 08:27] LABS: Pregnancy Test - Urine (BHCG) Negative (Negative); Pregu Control Background? CLEAR/WHITE (CLR/WHITE); Pregu Control Bar Appear? YES (CONTROL BAR); Specific Gravity 1.015 (1.002-1.036)
[2022-05-08 08:29] LABS: Anisocytosis SLIGHT = 6-15 cells (100X) (0-5/hpf); Hypochromia SLIGHT = 6-15 cells (100X) (0-5/hpf); Microcytosis SLIGHT = 6-15 cells (100X) (0-5/hpf)
[2022-05-08 08:30] LABS: Poikilocytosis SLIGHT = 6-15 cells (100X) (0-5/hpf)
[2022-05-08 08:31] LABS: Platelet Morphology Comment Appears Adequate
[2022-05-08] MEDS ORDERED: Sodium Chloride 0.9% 100 ML ONE (08:46)
[2022-05-08] MEDS ORDERED: Ondansetron PF 4 MG/2 ML Vial ONE (08:46)
[2022-05-08] MEDS ORDERED: cefTRIAXone\\ROCEPHIN 2 GM VIAL ONE (08:46)
[2022-05-08 10:38] LABS: INR-International Normal Ratio 1.1; Prothrombin Time 13.8 sec (12.0-14.7)
[2022-05-08 10:39] LABS: PTT 30.8 sec (22.9-36.1)
[2022-05-08 14:37] LABS: Hemoglobin 7.6 g/dL (12.0-16.0)
== END 2022-05-08 15:00 | disposition home or self-care (01) ==
LOC: MADERS 07:15
DX: N39.0 Urinary tract infection, site not specified (principal); N93.9 Abnormal uterine and vaginal bleeding, unspecified; D64.9 Anemia, unspecified; D25.9 Leiomyoma of uterus, unspecified; R74.01 Elevation of levels of liver transaminase levels; F17.210 Nicotine dependence, cigarettes, uncomplicated
CPT/HCPCS: 36430; 80053; 81003; 81015; 81025; 83690; 85025; 85610; 85730; 86850; 86900; 86901; 87077; 87086; 87186; 94760; 96361; 96365; 96375; J0696; J1885; J2405; P9016

== ENCOUNTER 2022-08-09 23:26 | Emergency (ER) | payer MEDICAID, SELFPAY ==
[2022-08-10 00:19] LABS: Hemoglobin 5.5 g/dL (12.0-16.0); Red Blood Cell (RBC) Count 3.09 mill/uL (4.20-5.40); White Blood Cell (WBC) Count 7.5 10x3/uL (4.8-10.8)
[2022-08-10 00:28] LABS: Prothrombin Time 13.6 sec (12.0-14.7)
[2022-08-10 00:29] LABS: BHCG - Serum Negative (NEGATIVE); PTT 29.5 sec (22.9-36.1); Pregs Control Background? CLEAR/WHITE (CLR/WHITE); Pregs Control Bar Appear? YES (CONTROL BAR)
[2022-08-10 00:37] LABS: #Basophils 0.1 thou/uL (0.0-0.2); #Eosinphils 0.1 thou/uL (0.0-0.7); #Lymphocytes 2.7 thou/uL (1.20-3.40); #Monocytes 0.7 thou/uL (0.11-0.59); #Neutrophils 3.9 thou/uL (1.40-6.50); %Basophils 1.2 % (0.0-1.0); %Eosinophils 1.9 % (0.0-10.0); %Lymphocytes 35.5 % (21.0-51.0); %Monocytes 9.5 % (0.0-10.0); %Neutrophils 51.9 % (42.0-75.0); ALT (SGPT) 8 U/L (8-55); AST (SGOT) 11 U/L (5-34); Albumin 3.9 g/dL (3.5-5.0); Alkaline Phosphatase 67 U/L (40-110); Anion Gap 12 mmol/L (10-20); BUN (Urea Nitrogen) 11 mg/dL (7.0-18.7); Bilirubin, Total 0.4 mg/dL (0.2-1.2); Calc. Creatinine Clearance 0 mL/min (70-130); Calcium 8.9 mg/dL (7.8-10.44); Carbon Dioxide 25 mmol/L (22-29); Chloride 105 mmol/L (98-107); Estimated GFR 112; Globulin 2.8 g/dL (2.4-3.5); Glucose 95 mg/dL (70-105); Hypochromia MODERATE=16-30 cells (100X) (0-5/hpf); MDiff Complete? YES; Magnesium 2.2 mg/dL (1.6-2.6); Mean Corpuscular Hemoglobin 17.7 pg (27.0-31.0); Mean Corpuscular Volume 63.2 fl (78.0-98.0); Mean Platelet Volume 8.3 fL (7.4-10.4); Microcytosis MODERATE=15-30 cells (100X) (0-5/hpf); Platelet Count 314 10x3/uL (130-400); Polychromasia SLIGHT = 2-3 cells (100X) (0-2/hpf); Potassium 3.7 mmol/L (3.5-5.1); Protein, Total 6.7 g/dL (6.0-8.3); RBC Distribution Width 16.4 % (11.5-14.5); Reflex for Review?? NO; Sodium 138 mmol/L (136-145)
[2022-08-10] MEDS ORDERED: Sodium Chloride 0.9% 1,000 ML ONE (01:00)
[2022-08-10 06:33] LABS: Hemoglobin 8.1 g/dL (12.0-16.0)
== END 2022-08-10 06:58 | disposition home or self-care (01) ==
LOC: MADERS 23:26
DX: D64.9 Anemia, unspecified (principal); N92.0 Excessive and frequent menstruation with regular cycle; F17.210 Nicotine dependence, cigarettes, uncomplicated
CPT/HCPCS: 36430; 80053; 83605; 83735; 84443; 84703; 85025; 85610; 85730; 86850; 86900; 86901; 93005; 94760; J7050; P9016